=== PATIENT | male | born 1940 | race African-American/Black ===

== ENCOUNTER 2024-07-03 20:07 | Inpatient (IN) | payer MEDICARE ==
[~2024-07-03] VITALS: Ht 167.6 cm; Wt 81.6 kg
[~2024-07-03 20:07] MED LIST: LASIX40 MG PO; PANTOPRAZOLE SO40 MG PO
[2024-07-03] MEDS: ONDANSETRON HCL INJ 2MG/ML 2ML 2 MG/ML VIAL IV STA (20:59)
[2024-07-03] MEDS: SODIUM CHLORIDE 0.9% 1000ML 1,000 ML IV STA (20:59)
[2024-07-03] MEDS: Morphine 4mg INJECTION 4 MG/ML INJ IV STA (20:59)
[2024-07-03 21:04] LABS: BASOPHILS % 0.2 % (0.0-1.0); EOSINOPHILS % 0.5 % (0.0-6.0); HEMATOCRIT 51.3 % (38.2-49.6); HEMOGLOBIN 15.7 g/dL (14.0-18.0); LYMPHOCYTES # (AUTO) 1.1 (1.0-3.2); LYMPHOCYTES % 20.6 % (18.0-39.1); MEAN CORPUSCULAR HGB CONC 30.6 g/dL (31-35); MEAN CORPUSCULAR VOLUME 91.4 fL (81-99); MONOCYTES # (AUTO) 0.6 (0.2-0.8); MONOCYTES % 11.7 % (4.4-11.3); NEUTROPHILS # (AUTO) 3.7 (2.1-6.9); NEUTROPHILS % 66.8 % (38.7-80.0); PLATELET COUNT 203 x10e3/uL (140-360); RED BLOOD COUNT 5.61 x10e6/uL (4.3-5.7); RED CELL DISTRIBUTION WIDTH 14.6 % (11.7-14.4); WHITE BLOOD COUNT 5.48 x10e3/uL (4.8-10.8)
[2024-07-03 21:18] LABS: ALBUMIN 3.9 g/dL (3.5-5.0); ALBUMIN/GLOBULIN RATIO 0.8 (0.8-2.0); ANION GAP 18.5 mmol/L (8-16); BILIRUBIN,TOTAL 0.7 mg/dL (0.2-1.2); CALCIUM 9.5 mg/dL (8.4-10.2); CREATININE, SERUM 1.56 mg/dL (0.72-1.25); POTASSIUM 4.5 mmol/L (3.5-5.1); TOTAL PROTEIN 8.5 g/dL (6.5-8.1)
[2024-07-03 21:24] LABS: TROPONIN I 0.001 ng/mL (0-0.300)
[2024-07-03 22:54] LABS: COLOR,URINE YELLOW (YELLOW)
[2024-07-03 22:55] LABS: BILIRUBIN,URINE NEGATIVE (NEGATIVE); CLARITY,URINE CLEAR (CLEAR); GLUCOSE, URINE NEGATIVE (NEGATIVE); KETONES,URINE NEGATIVE (NEGATIVE); LEUKOCYTE ESTERASE ,URINE NEGATIVE (NEGATIVE); NITRITE,URINE NEGATIVE (NEGATIVE); PH,URINE 8.5 (5 - 7); PROTEIN,URINE DIPSTICK NEGATIVE (NEGATIVE); URINE UROBILINOGEN 0.2 mg/dL (0.2 - 1)
[2024-07-03 23:03] LABS: BACTERIA,URINE FEW /HPF; EPITHELIAL CELLS,URINE FEW /LPF; WBC,URINE (MAN) 0-5 /HPF (0-5)
[2024-07-04] VITALS (12 sets, daily range): BP systolic 132–152; BP diastolic 67–81; PULSE 68–86; RESP 17–20; TEMP 97.9–208.6; O2SAT 96–100
[2024-07-04] MEDS ORDERED: Morphine 4mg INJECTION 4 MG/ML INJ IV PRN (01:00)
[2024-07-04] MEDS: SODIUM CHLORIDE 0.9% 1000ML 1,000 ML IV SCH (01:46)
[2024-07-04] MEDS: ONDANSETRON HCL INJ 2MG/ML 2ML 2 MG/ML VIAL IV PRN (08:17)
[2024-07-04] MEDS: METOCLOPRAMIDE HCL 10 MG/2ML VIAL IV ONE (11:30)
[2024-07-04] MEDS: METOCLOPRAMIDE HCL 10 MG/2ML VIAL IV SCH (12:00)
[2024-07-04] MEDS ORDERED: DOCUSATE SODIUM 100 MG CAP PO PRN (12:45)
[2024-07-04] MEDS ORDERED: MELATONIN 5 MG TABLET PO PRN (12:45)
[2024-07-04] MEDS ORDERED: DIPHENHYDRAMINE HCL 25 MG CAP PO PRN (12:45)
[2024-07-04] MEDS ORDERED: ALBUTEROL/IPRATROPIUM 3 ML NEB NEB PRN (12:45)
[2024-07-04] MEDS ORDERED: DEXTROSE 50% SYRINGE 50 ML IV PRN (12:45)
[2024-07-04] MEDS ORDERED: BENZONATATE 100 MG CAP PO PRN (12:45)
[2024-07-04] MEDS ORDERED: POTASSIUM CHLORIDE 20 MEQ TAB CR PO PRN (12:45)
[2024-07-04] MEDS ORDERED: LIDOCAINE 4% PATCH TP PRN (12:45)
[2024-07-04] MEDS ORDERED: HYDRALAZINE HCL 20 MG/ML VIAL IV PRN (12:45)
[2024-07-04] MEDS ORDERED: ACETAMINOPHEN 325 MG TAB PO PRN (12:45)
[2024-07-04] MEDS ORDERED: SIMETHICONE 80 MG CHEW PO PRN (12:45)
[2024-07-04] MEDS: DEXTROSE 5%/0.9% SOD CHL 1,000 ML IV SCH (20:59)
[2024-07-05] VITALS (11 sets, daily range): BP systolic 136–159; BP diastolic 72–82; PULSE 58–82; RESP 18–22; TEMP 98.1–98.7; O2SAT 96–100
[2024-07-05 06:50] LABS: ALBUMIN 3.2 g/dL (3.5-5.0); ALBUMIN/GLOBULIN RATIO 0.8 (0.8-2.0); ANION GAP 16.3 mmol/L (8-16); CALCIUM 8.8 mg/dL (8.4-10.2); CREATININE, SERUM 1.28 mg/dL (0.72-1.25); POTASSIUM 4.3 mmol/L (3.5-5.1); TOTAL PROTEIN 7.1 g/dL (6.5-8.1)
[2024-07-05] MEDS ORDERED: PANTOPRAZOLE SOD 40 MG TABEC PO SCH (07:30)
[2024-07-05 08:10] LABS: BASOPHILS % 0.2 % (0.0-1.0); EOSINOPHILS % 0.2 % (0.0-6.0); HEMATOCRIT 46.9 % (38.2-49.6); HEMOGLOBIN 15.2 g/dL (14.0-18.0); LYMPHOCYTES # (AUTO) 1.2 (1.0-3.2); LYMPHOCYTES % 21.6 % (18.0-39.1); MEAN CORPUSCULAR HEMOGLOBIN 27.9 pg (28-32); MEAN CORPUSCULAR HGB CONC 32.4 g/dL (31-35); MEAN CORPUSCULAR VOLUME 86.2 fL (81-99); MONOCYTES # (AUTO) 0.8 (0.2-0.8); MONOCYTES % 13.6 % (4.4-11.3); NEUTROPHILS # (AUTO) 3.5 (2.1-6.9); PLATELET COUNT 204 x10e3/uL (140-360); RED BLOOD COUNT 5.44 x10e6/uL (4.3-5.7); RED CELL DISTRIBUTION WIDTH 14.9 % (11.7-14.4); WHITE BLOOD COUNT 5.51 x10e3/uL (4.8-10.8)
[2024-07-05 12:25] LABS: HEMOGLOBIN 13.8 g/dL (14.0-18.0)
[2024-07-05] MEDS: METOCLOPRAMIDE HCL 10 MG/2ML VIAL IV SCH (12:48)
[2024-07-05] MEDS ORDERED: METOCLOPRAMIDE HCL 10 MG TAB PO SCH (21:00)
[2024-07-06] MEDS: METOCLOPRAMIDE HCL 10 MG/2ML VIAL IV SCH (00:59)
[2024-07-06 03:10] VITALS: BP 147/82; PULSE 74; RESP 18; TEMP 98.4; O2SAT 98
[2024-07-06 03:21] VITALS: BP 135/71; PULSE 77; RESP 18; TEMP 98.2; O2SAT 98
[2024-07-06 06:16] LABS: BASOPHILS % 0.2 % (0.0-1.0); EOSINOPHILS % 0.6 % (0.0-6.0); HEMATOCRIT 45.4 % (38.2-49.6); HEMOGLOBIN 14.7 g/dL (14.0-18.0); LYMPHOCYTES # (AUTO) 1.3 (1.0-3.2); LYMPHOCYTES % 25.4 % (18.0-39.1); MEAN CORPUSCULAR HEMOGLOBIN 27.8 pg (28-32); MEAN CORPUSCULAR HGB CONC 32.4 g/dL (31-35); MONOCYTES # (AUTO) 0.9 (0.2-0.8); MONOCYTES % 16.7 % (4.4-11.3); NEUTROPHILS # (AUTO) 2.9 (2.1-6.9); NEUTROPHILS % 56.9 % (38.7-80.0); PLATELET COUNT 190 x10e3/uL (140-360); RED BLOOD COUNT 5.28 x10e6/uL (4.3-5.7); RED CELL DISTRIBUTION WIDTH 14.7 % (11.7-14.4); WHITE BLOOD COUNT 5.16 x10e3/uL (4.8-10.8)
[2024-07-06 06:22] VITALS: PULSE 82; RESP 22; O2SAT 95
[2024-07-06 06:41] LABS: ANION GAP 13.7 mmol/L (8-16); CALCIUM 8.5 mg/dL (8.4-10.2); CREATININE, SERUM 1.13 mg/dL (0.72-1.25); POTASSIUM 3.7 mmol/L (3.5-5.1)
[2024-07-06 08:00] VITALS: BP 142/77; PULSE 68; RESP 18; TEMP 98.1; O2SAT 98
[2024-07-06 12:00] VITALS: BP 164/78; PULSE 71; RESP 20; TEMP 98.7; O2SAT 99
[2024-07-06] MEDS ORDERED: METOCLOPRAMIDE10 MG PO (15:42)
== END 2024-07-06 16:55 | disposition home or self-care (01) | DRG 392 ==
LOC: ER 20:22 → ERHOLD 07-04 00:54 → MED/SURG3 07-04 02:13 → OBSVTOIN 07-05 11:25
PROVIDERS: ADMIT Internal Medicine; ATTEND Internal Medicine
DX: K22.2 Esophageal obstruction (principal); R64 Cachexia; K92.0 Hematemesis; K21.9 Gastro-esophageal reflux disease without esophagitis; R53.81 Other malaise; R10.10 Upper abdominal pain, unspecified; S05.92XS Unspecified injury of left eye and orbit, sequela; Z87.820 Personal history of traumatic brain injury; Z93.1 Gastrostomy status; Z88.6 Allergy status to analgesic agent; Z90.49 Acquired absence of other specified parts of digestive tract; Z68.29 Body mass index [BMI] 29.0-29.9, adult
CPT/HCPCS: 36415; 71260; 74174; 80048; 80053; 81001; 82550; 82948; 83690; 83735; 84484; 85014; 85018; 85025; 93005; 94799; 99284; G0378; J2405; J2470; J2765; J7030; J7042

== ENCOUNTER 2024-07-18 00:34 | Emergency (ER) | payer MEDICARE ==
[~2024-07-18] VITALS: Ht 167.6 cm; Wt 81.6 kg
[~2024-07-18 00:34] MED LIST changes: +METOCLOPRAMIDE10 MG PO
[2024-07-18 00:52] VITALS: PULSE 66; RESP 20; TEMP 98.7
[2024-07-18 01:16] LABS: BASOPHILS % 0.2 % (0.0-1.0); EOSINOPHILS # (AUTO) 0.1 (0.0-0.4); EOSINOPHILS % 1.2 % (0.0-6.0); HEMATOCRIT 44.8 % (38.2-49.6); HEMOGLOBIN 14.6 g/dL (14.0-18.0); LYMPHOCYTES # (AUTO) 0.8 (1.0-3.2); LYMPHOCYTES % 16.4 % (18.0-39.1); MEAN CORPUSCULAR HEMOGLOBIN 27.7 pg (28-32); MEAN CORPUSCULAR HGB CONC 32.6 g/dL (31-35); MEAN CORPUSCULAR VOLUME 84.8 fL (81-99); MONOCYTES # (AUTO) 0.5 (0.2-0.8); MONOCYTES % 10.7 % (4.4-11.3); NEUTROPHILS # (AUTO) 3.5 (2.1-6.9); NEUTROPHILS % 71.3 % (38.7-80.0); PLATELET COUNT 232 x10e3/uL (140-360); RED BLOOD COUNT 5.28 x10e6/uL (4.3-5.7); RED CELL DISTRIBUTION WIDTH 14.6 % (11.7-14.4); WHITE BLOOD COUNT 4.94 x10e3/uL (4.8-10.8)
[2024-07-18] MEDS: SODIUM CHLORIDE 0.9% 1000ML 1,000 ML IV ONE (01:22)
[2024-07-18] MEDS: METOCLOPRAMIDE HCL 10 MG/2ML VIAL IV ONE (01:23)
[2024-07-18] MEDS: ONDANSETRON HCL INJ 2MG/ML 2ML 2 MG/ML VIAL IV STA (01:23)
[2024-07-18 01:40] LABS: ALBUMIN 3.8 g/dL (3.5-5.0); ALBUMIN/GLOBULIN RATIO 0.9 (0.8-2.0); ANION GAP 19.1 mmol/L (8-16); BILIRUBIN,TOTAL 0.5 mg/dL (0.2-1.2); CALCIUM 9.5 mg/dL (8.4-10.2); CREATININE, SERUM 1.39 mg/dL (0.72-1.25); POTASSIUM 5.1 mmol/L (3.5-5.1); TOTAL PROTEIN 8.1 g/dL (6.5-8.1)
[2024-07-18 01:41] LABS: LIPASE 17 U/L (8-78)
[2024-07-18] MEDS ORDERED: IOPAMIDOL 370 MG/ML 100 ML INFUS..BTL INJ ONE (02:00)
[2024-07-18 02:28] LABS: TROPONIN I < 0.001 ng/mL (0-0.300)
[2024-07-18 03:30] VITALS: BP 132/68; PULSE 76; RESP 16; TEMP 98; O2SAT 97
== END 2024-07-18 03:35 | disposition home or self-care (01) ==
LOC: ER 00:38
DX: R11.2 Nausea with vomiting, unspecified (principal); K22.2 Esophageal obstruction; K21.9 Gastro-esophageal reflux disease without esophagitis; R10.10 Upper abdominal pain, unspecified
CPT/HCPCS: 36415; 71045; 74177; 80053; 83690; 84484; 85025; 93005; 99284; J2405; J2470; J2765; J7030; Q9967